=== PATIENT | female | born 1945 | race Hispanic/Latino ===

== ENCOUNTER 2016-04-15 19:43 | Emergency (ER) | payer OTHER ==
[~2016-04-15] VITALS: Ht 142.2 cm; Wt 48.2 kg
[~2016-04-15 19:43] MED LIST: ASPIRIN EC81 M1 PO; ATORVASTATIN CA10 M1 PO; BYSTOLIC5 M1 PO; ENALAPRIL MALEA20 M1 PO; FARXIGA5 MG PO; FENOFIBRATE145 MG PO; JENTADUETO 2.51 TAB PO; METFORMIN HCL500 M4 PO; SIMVASTATIN40 MG PO
--- NOTE | 2016-04-15 20:36 | ED UPPER/LOWER EXTREMITY COMPL ---
History of Present Illness General Chief Complaint: Lower Extremity Problems Stated Complaint: LEFT LOWER LEG PAIN X3 DAYS Source: patient, family Exam Limitations: language barrier Vital Signs & Intake/Output Vital Signs & Intake/Output Vital Signs Date Time Temp Pulse Resp B/P Pulse O2 O2 Flow FiO2 Ox Delivery Rate 04/15 2151 97.6 72 18 134/72 100 Room Air Room Air 04/15 1952 97.8 77 20 147/77 100 Room Air ED Intake and Output 04/16 0000 04/15 1200 Intake Total Output Total Balance Patient 106 lb Weight Allergies Coded Allergies: Penicillins (Intermediate, HIVES 04/15/16) Reconcile Medications Tylenol With Codeine (Tylenol With Codeine #3 Tablet) 300 MG-30 MG TABLET 1 TAB PO BIDP PRN pain Triage Note: TRIAGE: PT TO ER WITH DAUGHTER C/C PAIN TO R LEG FROM HIP TO KNEE. ONSET THURSDAY. CONSTANT SINCE ONSET AND UNRELIEVED WITH TYLENOL, MOTRIN OR ALEVE. NO KNOWN INJURY. DAUGHTER STATES SHE WAS BENDING OVER WITH THE BROOM TAKING STUFF OUT FROM UNDER THE BED WITH ONSET OF PAIN. PT IS PREDOMINANTLY BULGARIAN SPEAKING, DAUGHTER ASSISTS WITH TRANSLATIONS. Triage Nurses Notes Reviewed? yes Onset: Gradual Duration: day(s): (4) Timing: no prior history Severity: moderate Pain/Injury Location: Left: Hip, Leg. Method of Injury: unknown Modifying Factors: Improves With: immobilization. Worsens With: movement. Associated Symptoms: none HPI: Patient is a 70-year-old female presenting to the emergency department with chief complaint of left hip pain that radiates into the left buttock region that has been going on for the past 4 days. Denies any specific injury but reports that it started after she was bending over cleaning the day. Pain is achy and throbbing. Worse when she puts her leg in a certain position. Denies any urinary incontinence or retention. Denies any abdominal pain. No nausea vomiting fevers or chills chest pain or shortness of breath. (BONY BETANCOURT) Past History Travel History Traveled to [place] past 21 day No Medical History Any Pertinent Medical History? 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 No (BONY BETANCOURT) Review of Systems Review of Systems Constitutional: Reports: no symptoms. Comments Review of systems: See HPI, All other systems negative. Constitutional, no chills fever or weight loss HEENT: No visual changes no sore throat no congestion Cardiovascular: No chest pain ,palpitation Skin, no jaundice no rashes Respiratory: No dyspnea cough sputum or hemoptysis GI: No nausea no vomiting : No dysuria No hematuria Muscle skeletal: no neck pain, Neurologic: No numbness Immunology: No splenectomy or history of AIDS (BONY BETANCOURT) Physical Exam Physical Exam General Appearance: well developed/nourished, no apparent distress, alert, awake , comfortable Comments: Well-developed well-nourished person in no acute distress HEENT: Pupils equally round and reactive to light and accommodation. Nose is atraumatic. Neck: Normal inspection Back: Nontender, no CVA tenderness. Full range of motion Cardiovascular: Regular rate and rhythms no murmurs rubs or gallops, normal JVP Respiratory: No respiratory distress.breath sounds clear to auscultation bilaterally Abdomen: Soft, nontender nondistended Extremity: No edema, no calf tenderness to palpation, normal and equal pulses. Tender to palpation over the left gluteus, pain with left hip abduction. No pain with straight leg raise on the left lower extremity. No pain to palpation over the left greater trochanter. Neuro: Alert oriented x3, motor sensory normal Skin: No appreciable rash on exposed skin, skin is warm and dry. Psych: Mood and affect is normal, memory and judgment is normal. (BONY BETANCOURT) Progress Differential Diagnosis: contusion, dislocation, fracture, sprain, tendon injury Plan of Care: Orders Procedure Date/time Status XRY-HIP 2-3 VIEWS, LEFT 04/15 2036 Active Diagnostic Imaging: Viewed by Me: Radiology Read. Discussed w/RAD: Radiology Read. Radiology Impression: PATIENT: JOHNNY BUSTILLOS PRESENT AGE: 70 PATIENT ACCOUNT NO: [id number] : 43 LOCATION: [facility] ORDERING PHYSICIAN: BONY BOWERS SERVICE DATE: 04/15/16 EXAM TYPE: RAD - XRY-HIP 2-3 VIEWS, LEFT EXAMINATION: XR HIP, LEFT CLINICAL INFORMATION: Pain. Evaluate for fracture. COMPARISON: No relevant prior imaging is available. TECHNIQUE: An AP view of the pelvis was obtained. 3 additional projections of the left hip were obtained. FINDINGS: There is a small well marginated focus of tendinous calcification at the insertion of the gluteus medius muscle on the greater trochanter. The femoral head and neck are intact with no evidence of acute fracture. There is no dislocation. Visualized portions of the pelvis are intact. Bowel gas pattern is unremarkable. There is slight left lateral subluxation of L4 on L5. Visualized lower lumbar vertebral segments are otherwise unremarkable. IMPRESSION: There is tendinous calcification at the insertion of the gluteus medius on the greater trochanter. Otherwise unremarkable radiographs of the left hip. No evidence of acute fracture or dislocation. Comments: Patient given by mouth Tylenol with Codeine here for pain. Patient ambulatory with little difficulty. She'll go fracture. Patient informed of x-ray results. Likely tendinitis. Started on anti- inflammatory and pain medication regimen. She'll follow up with orthopedics. Ambulatory with steady gait. d/w dr horton and he agrees with plan. (MARLEN BOWERS,BONY) Departure Departure Time of Disposition: 2116 Disposition: HOME OR SELF CARE Condition: Stable Clinical Impression Primary Impression: Tendinitis Referrals: UNKNOWN (PCP) Additional Instructions: follow up with pcp call to make appt. take tylenol with codeine for sever pain. follow up with orthopedic. continue advil for inflammation. return for worsening symptoms. PATIENT: JOHNNY BUSTILLOS PRESENT AGE: 70 PATIENT ACCOUNT NO: [id number] : 43 LOCATION: [facility] ORDERING PHYSICIAN: BONY BOWERS SERVICE DATE: 04/15/16 EXAM TYPE: RAD - XRY-HIP 2-3 VIEWS, LEFT EXAMINATION: XR HIP, LEFT CLINICAL INFORMATION: Pain. Evaluate for fracture. COMPARISON: No relevant prior imaging is available. TECHNIQUE: An AP view of the pelvis was obtained. 3 additional projections of the left hip were obtained. FINDINGS: There is a small well marginated focus of tendinous calcification at the insertion of the gluteus medius muscle on the greater trochanter. The femoral head and neck are intact with no evidence of acute fracture. There is no dislocation. Visualized portions of the pelvis are intact. Bowel gas pattern is unremarkable. There is slight left lateral subluxation of L4 on L5. Visualized lower lumbar vertebral segments are otherwise unremarkable. IMPRESSION: There is tendinous calcification at the insertion of the gluteus medius on the greater trochanter. Otherwise unremarkable radiographs of the left hip. No evidence of acute fracture or dislocation. Departure Forms: Customer Survey General Discharge Information Prescriptions: Current Visit Scripts Tylenol With Codeine (Tylenol With Codeine #3 Tablet) 1 TAB PO BIDP PRN pain #10 TAB (BONY BETANCOURT) PA/SENIOR LABORATORY TECHNICIAN Co-Sign Statement Statement: ED Attending supervision documentation- [] I saw and evaluated the patient. I have also reviewed all the pertinent lab results and diagnostic results. I agree with the findings and the plan of care as documented in the PA's/SENIOR LABORATORY TECHNICIAN's documentation. [X] I have reviewed the ED Record and agree with the PA's/SENIOR LABORATORY TECHNICIAN's documentation. [] Additions or exceptions (if any) to the PAs/SENIOR LABORATORY TECHNICIAN's note and plan are summarized below: [] (CRISTI WALTERS,NITIN Millre)
--- NOTE | 2016-04-15 21:14 | RADIOLOGY REPORT ---
EXAMINATION: XR HIP, LEFT CLINICAL INFORMATION: Pain. Evaluate for fracture. COMPARISON: No relevant prior imaging is available. TECHNIQUE: An AP view of the pelvis was obtained. 3 additional projections of the left hip were obtained. FINDINGS: There is a small well marginated focus of tendinous calcification at the insertion of the gluteus medius muscle on the greater trochanter. The femoral head and neck are intact with no evidence of acute fracture. There is no dislocation. Visualized portions of the pelvis are intact. Bowel gas pattern is unremarkable. There is slight left lateral subluxation of L4 on L5. Visualized lower lumbar vertebral segments are otherwise unremarkable. IMPRESSION: There is tendinous calcification at the insertion of the gluteus medius on the greater trochanter. Otherwise unremarkable radiographs of the left hip. No evidence of acute fracture or dislocation.
[2016-04-15] MEDS ORDERED: TYLENOL WITH C1 EACH PO (21:19)
[2016-04-15 21:52] VITALS: BP 134/72
== END 2016-04-15 21:53 ==
LOC: ERH 19:43 → EDBD 20:16 → ERH 21:53
DX: M76.892 Other specified enthesopathies of left lower limb, excluding foot (principal)
CPT/HCPCS: 73502-LT

== ENCOUNTER 2016-07-07 14:17 | Emergency (ER) | payer OTHER ==
[~2016-07-07] VITALS: Ht 162.6 cm; Wt 44.5 kg
[~2016-07-07 14:17] MED LIST changes: +TYLENOL WITH C1 EACH PO
[2016-07-07 14:49] LABS: ABSOLUTE BASOPHIL COUNT 0 /CUMM (0.0-0.2); ABSOLUTE EOSINOPHIL COUNT 0.1 /CUMM (0.0-0.7); ABSOLUTE GRANULOCYTE CT 3.9 /CUMM (1.4-6.5); ABSOLUTE LYMPH COUNT 1.3 /CUMM (1.2-3.4); ABSOLUTE MONOCYTE COUNT 0.4 /CUMM (0.10-0.60); BASOPHIL % 0.5 % (0.0-2.0); EOSINOPHIL % 2.1 % (0-5); GRANULOCYTE % 68.3 % (42.2-75.2); HEMATOCRIT 40.4 % (37-47); MEAN CORPUSCULAR HGB 26.8 PG (27.0-31.0); MEAN CORPUSCULAR HGB CONC 32.6 G/DL (33.0-37.0); MEAN CORPUSCULAR VOLUME 82.3 FL (81.0-99.0); PLATELET COUNT 185 /CUMM (130-400); RBC DISTRIBUTION WIDTH 14.7 % (11.5-14.5); RED BLOOD CELL CT 4.91 /CUMM (4.20-5.40); WHITE BLOOD CELL COUNT 5.7 /CUMM (4.8-10.8)
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
[2016-07-07] MEDS ORDERED: ALPRAZOLAM0.25 M1 PO (17:08)
--- NOTE | 2016-07-07 18:22 | RADIOLOGY REPORT ---
EXAMINATION: XR CHEST CLINICAL INFORMATION: Fall. Pain. COMPARISON: 03/05/2016 TECHNIQUE: 2 views of the chest were obtained. FINDINGS: The lungs are well expanded. There is no focal consolidation, edema, or effusion. No pneumothorax. The cardiomediastinal silhouette is within normal limits. No acute fracture visualized. There is separation of the left acromioclavicular joint, with superior positioning of the clavicle in relation to the acromion and widening of the coracoclavicular space. Calcification also seen adjacent to the left humeral head.. IMPRESSION: No acute pulmonary findings. Left AC joint separation.
--- NOTE | 2016-07-07 18:24 | RADIOLOGY REPORT ---
EXAMINATION: XR HIP, LEFT CLINICAL INFORMATION: Fall. Left hip pain. COMPARISON: 04/15/2016 TECHNIQUE: Two views of the left hip. Frontal view of the pelvis. FINDINGS: There is no acute fracture or dislocation. The femoral heads are well-seated within their respective acetabula. Due to patient rotation, evaluation of the left inferior pubic ramus is somewhat limited. The pelvic rim appears intact. The sacroiliac joints and pubic symphysis are intact. The bowel gas pattern is unremarkable. Small calcification adjacent to the left greater trochanter, unchanged. Mild degenerative changes at both hips. IMPRESSION: No acute fracture or dislocation. Mild degenerative changes of the hips. Redemonstration of soft tissue calcification at the gluteus medius/minimus trochanteric insertion. Of note, due to patient rotation, evaluation of the left inferior pubic ramus is limited.
--- NOTE | 2016-07-07 18:24 | RADIOLOGY REPORT ---
EXAMINATION: XR SHOULDER, LEFT CLINICAL INFORMATION: Fall. Pain. COMPARISON: None TECHNIQUE: AP external rotation, Grashey, scapular Y, and axillary views of the left shoulder. FINDINGS: There is acromioclavicular joint separation. Slightly greater than one full shaft width inferior dislocation of the acromion relative to the distal clavicle. No fracture line. The glenohumeral joint is normal. No fracture of the humerus. There are small linear calcifications adjacent to the humeral head at the greater tuberosity of calcific tendinosis or bursitis. IMPRESSION: Acromioclavicular joint separation. No fracture of shoulder.
[2016-07-07 18:38] VITALS: BP 146/71
[2016-07-07] MEDS ORDERED: NAPROXEN375 M2 PO (19:50)
--- NOTE | 2016-07-08 11:22 | NUR ---
07/08 CASE MGMT- CALL FROM [facility] STATES THEY DONT HAVE CONTRACT WITH [employer] [facility] WILLNOT BE ABLE TO ACCEPT PT. SPOKE WITH PT DAUGHTER JUSTO STATES NO PREFERENCE. CALL TO [facility] FOR REFERRAL AND W10 AND FACE SHEET FAXED TO [facility]. PT AND PT DAUGHTER IN AGREEMENT WITH D/C PLAN.
== END 2016-07-07 20:08 ==
LOC: ERH 14:17
PROVIDERS: Emergency Medicine
DX: S43.102A Unspecified dislocation of left acromioclavicular joint, initial encounter (principal); M25.552 Pain in left hip; W10.9XXA Fall (on) (from) unspecified stairs and steps, initial encounter; Y92.009 Unspecified place in unspecified non-institutional (private) residence as the place of occurrence of the external cause; Y92.9 Unspecified place or not applicable
CPT/HCPCS: 73030-LT; 73502-LT; 80307; 81001; 93005; 93010